=== PATIENT | male | born 1985 | race Caucasian/White ===

== ENCOUNTER 2022-06-07 04:43 | Emergency (ER) | payer OTHER ==
[2022-06-07 05:03] VITALS: BP 129/83; PULSE 88; RESP 17; TEMP 97.6; BMI 25.7
[2022-06-07] MEDS ORDERED: IBUPROFEN 600 MG TABLET (FP) PO ONE ×2 (05:27→05:34)
== END 2022-06-07 06:16 | disposition home or self-care (01) ==
LOC: JER 04:43
DX: S16.1XXA Strain of muscle, fascia and tendon at neck level, initial encounter (principal); X50.0XXA Overexertion from strenuous movement or load, initial encounter; Y93.I9 Activity, other involving external motion; Y99.0 Civilian activity done for income or pay
CPT/HCPCS: 99282-25